=== PATIENT | male | born 1975 ===

== ENCOUNTER → 2024-02-03 07:37 | Outpatient (CLI) | payer OTHER ==
[2024-02-03 08:24] LABS: ob NEGATIVE (NEGATIVE)
[2024-02-03 08:25] LABS: HEMATOCRIT 48.9 % (39.0-48.0); HEMOGLOBIN 17.1 g/dL (13-16.00); MEAN CELL VOLUME 93.5 fL (80.0-100.00); MEAN CORPUSCULAR HEMOGLOBIN 32.7 pg (27.00-32.0); PLATELET COUNT 142 K/uL (150-450); RED BLOOD COUNT 5.22 M/uL (4.00-6.00); RED CELL DISTRIBUTION WIDTH 13.7 % (11.5-14.5)
[2024-02-03 09:16] LABS: ALBUMIN 4.1 gm/dL (3.4-5.0); BILIRUBIN TOTAL 1.56 mg/dL (0.3-1.2); CHOL HDL RATIO 4.7 (0-5.0); CREATININE SERUM 0.96 mg/dL (0.70-1.30); GFR 83.25; GLOBULINA 3.3 G/DL (2.4-3.5); POTASSIUM 4.25 mEq/L (3.5-5.1); TOTAL PROTEIN 7.4 gm/dL (6.4-8.2); TSH 1.74 uIU/mL (0.358-3.74)
== END | disposition home or self-care (01) ==
LOC: LAB 07:37
PROVIDERS: ATTEND Family Medicine Adult Medicine
DX: Z12.5 Encounter for screening for malignant neoplasm of prostate (principal); K21.9 Gastro-esophageal reflux disease without esophagitis; E78.2 Mixed hyperlipidemia; R73.01 Impaired fasting glucose; Z12.11 Encounter for screening for malignant neoplasm of colon

== ENCOUNTER 2024-02-03 08:24 | Outpatient (CLI) | payer OTHER | END 2024-02-03 08:38 | disposition home or self-care (01) | LOC: RAD 08:24 | PROVIDERS: ATTEND Family Medicine Adult Medicine | DX: K21.9 Gastro-esophageal reflux disease without esophagitis (principal) ==

== ENCOUNTER 2024-06-01 06:29 | Outpatient (CLI) | payer OTHER ==
[2024-06-01 07:19] LABS: HEMATOCRIT 48.3 % (39.0-48.0); HEMOGLOBIN 16.7 g/dL (13-16.00); MEAN CELL VOLUME 94.8 fL (80.0-100.00); MEAN CORPUSCULAR HEMOGLOBIN 32.7 pg (27.00-32.0); MEAN CORPUSCULAR HGB CONC 34.5 g/dl (32.0-36.0); PLATELET COUNT 151 K/uL (150-450); RED CELL DISTRIBUTION WIDTH 12.8 % (11.5-14.5)
[2024-06-01 08:24] LABS: CHOL HDL RATIO 3.8 (0-5.0)
== END 2024-06-01 06:34 | disposition home or self-care (01) ==
LOC: LAB 06:29
PROVIDERS: ATTEND Family Medicine Adult Medicine
DX: E78.2 Mixed hyperlipidemia (principal); D69.6 Thrombocytopenia, unspecified

== ENCOUNTER → 2024-06-10 06:35 | Outpatient (CLI) | payer OTHER ==
[2024-06-10 07:35] LABS: PARTIAL THROMBOPLASTIN TIME 28.4 SECONDS (22.0-34.0); PROTHROMBIN TIME 10.9 SECONDS (9.0-11.5)
[2024-06-10 08:26] LABS: ALBUMIN 4.1 gm/dL (3.4-5.0); BILIRUBIN TOTAL 1.23 mg/dL (0.3-1.2); CALCIUM 9.1 mg/dL (8.5-10.1); CREATININE SERUM 1.1 mg/dL (0.70-1.30); GFR 70.85; GLOBULINA 3.3 G/DL (2.4-3.5); POTASSIUM 4.56 mEq/L (3.5-5.1); TOTAL PROTEIN 7.4 gm/dL (6.4-8.2)
== END | disposition home or self-care (01) ==
LOC: LAB 06:35
DX: Z00.00 Encounter for general adult medical examination without abnormal findings (principal); Z11.4 Encounter for screening for human immunodeficiency virus [HIV]; R79.1 Abnormal coagulation profile